=== PATIENT | male | born 1945 | race Caucasian/White ===

== ENCOUNTER 2018-02-16 04:00 | Inpatient (IN) ==
[2018-02-16] MEDS ORDERED: SODIUM CHLORIDE 0.9% 1,000 ML IV STA (04:06)
[2018-02-16] MEDS ORDERED: SODIUM CHLORIDE 0.9% 1,000 ML IV PRN (04:07)
[2018-02-16 05:15] LABS: Albumin 3.2 G/DL (3.4-5.0); Bilirubin,Total 0.7 MG/DL (0.2-1.0); Calcium 8.1 MG/DL (8.5-10.1); Osmolality,Calculated 282.5 MOS/KG (273-304); Potassium 4.1 MMOL/L (3.5-5.1); Total Protein 6.1 G/DL (6.4-8.3)
[2018-02-16] MEDS ORDERED: CEFEPIME 2,000 MG in SODIUM CHLORIDE 0.9% 100 ML IV STA (05:15)
[2018-02-16] MEDS ORDERED: metroNIDAZOLE INJ 500 MG in PREMIX 1 EACH IV STA (05:15)
[2018-02-16 05:33] LABS: Basophils % 0.2 % (0.0-0.8); Eosinophils # 0.2 10*3/uL (0.0-0.87); Eosinophils % 1.4 % (0.00-10.9); Hematocrit 32.2 VOL% (42.0-52.0); Hemoglobin 10.8 GM/DL (14.0-18.0); Immature Granulocytes % 0.8 %; Immature Granulocytes Absolute 0.13 #; Lymphocytes % 6.4 % (21.2-54.2); Mean Corpuscular HGB Conc 33.5 GM/DL (32-36); Mean Corpuscular Hemoglobin 31 PG (27-34); Mean Corpuscular Volume 93.1 FL (87-102); Mean Platelet Volume 10.5 FL (9.6-12.0); Monocytes # 0.9 10*3/uL (0.11-0.8); Monocytes % 5.6 % (1.7-12.7); Neutrophils # 13.3 10*3/uL (1.4-7.4); Neutrophils % 85.6 % (38.7-73.9); Platelet Count 207 T/CUMM (130-400); Red Blood Count 3.46 MC/CUMM (3.8-5.5); White Blood Count 15.6 T/CUMM (4-12)
[2018-02-16 05:55] LABS: PT Patient Result 10.7 SECS; Partial Thromboplastin Time 25.4 SECS (0-40)
[2018-02-16] MEDS ORDERED: ONDANSETRON 4 MG/2 ML VIAL IV PRN (07:30)
[2018-02-16] MEDS ORDERED: SODIUM CHLORIDE 0.9% 1,000 ML IV SCH (07:30)
[2018-02-16] MEDS ORDERED: ACETAMINOPHEN 325 MG TABLET PO PRN (07:30)
[2018-02-16] MEDS ORDERED: MAGNESIUM HYDROXIDE SUSP 30 ML UDCUP PO PRN (07:33)
[2018-02-16] MEDS ORDERED: ALUMINUM/MAGNES/SIMETH MAX STR 30 ML UDCUP PO PRN (07:33)
[2018-02-16 08:46] LABS: Hematocrit 33.5 VOL% (42.0-52.0); Hemoglobin 11.3 GM/DL (14.0-18.0)
[2018-02-16] MEDS: metroNIDAZOLE INJ 500 MG in PREMIX 1 EACH IV SCH ×2 (10:53→17:20)
[2018-02-16] MEDS: LEVOFLOXACIN INJ 750 MG in PREMIX 1 EACH IV SCH (10:59)
[2018-02-16] MEDS: PANTOPRAZOLE 40 MG TABLET PO SCH (11:00)
[2018-02-16] MEDS ORDERED: DEXTROSE 50% 25 GM/50 ML VIAL IV PRN (12:48)
[2018-02-16] MEDS ORDERED: GLUCAGON 1 MG VIAL IM PRN (12:48)
[2018-02-16 17:30] LABS: Hematocrit 33.6 VOL% (42.0-52.0); Hemoglobin 11.2 GM/DL (14.0-18.0)
[2018-02-16] MEDS: INSULIN LISPRO 100 UNIT/ML SUBCUT SCH ×2 (17:45→21:00)
[2018-02-16] MEDS ORDERED: GABAPENTIN 300 MG CAPSULE PO SCH (21:00)
[2018-02-16] MEDS ORDERED: FLUTICASONE/SALMETEROL 250-50 DISKUS 14 DOSE INH SCH (21:00)
[2018-02-16] MEDS ORDERED: traZODone 50 MG TABLET PO SCH (21:00)
[2018-02-17 00:46] LABS: Hematocrit 29.7 VOL% (42.0-52.0); Hemoglobin 10.1 GM/DL (14.0-18.0)
[2018-02-17] MEDS: metroNIDAZOLE INJ 500 MG in PREMIX 1 EACH IV SCH ×2 (03:58→09:49)
[2018-02-17 04:29] LABS: Basophils % 0.2 % (0.0-0.8); Eosinophils # 0.1 10*3/uL (0.0-0.87); Eosinophils % 1.5 % (0.00-10.9); Hematocrit 30.5 VOL% (42.0-52.0); Hemoglobin 10.2 GM/DL (14.0-18.0); Immature Granulocytes % 0.4 %; Immature Granulocytes Absolute 0.04 #; Lymphocytes # 1.6 10*3/uL (1.4-4.0); Lymphocytes % 17.4 % (21.2-54.2); Mean Corpuscular HGB Conc 33.4 GM/DL (32-36); Mean Corpuscular Hemoglobin 31 PG (27-34); Mean Corpuscular Volume 93.3 FL (87-102); Mean Platelet Volume 10.9 FL (9.6-12.0); Monocytes # 0.7 10*3/uL (0.11-0.8); Monocytes % 7.6 % (1.7-12.7); Neutrophils # 6.7 10*3/uL (1.4-7.4); Neutrophils % 72.9 % (38.7-73.9); Platelet Count 204 T/CUMM (130-400); Red Blood Count 3.27 MC/CUMM (3.8-5.5); White Blood Count 9.2 T/CUMM (4-12)
[2018-02-17 04:37] LABS: Calcium 8.1 MG/DL (8.5-10.1); Osmolality,Calculated 284.8 MOS/KG (273-304); Potassium 3.8 MMOL/L (3.5-5.1)
[2018-02-17] MEDS: INSULIN LISPRO 100 UNIT/ML SUBCUT SCH (09:48)
[2018-02-17] MEDS: PANTOPRAZOLE 40 MG TABLET PO SCH (09:49)
[2018-02-17] MEDS: LEVOFLOXACIN INJ 750 MG in PREMIX 1 EACH IV SCH (09:50)
[2018-02-17 12:15] VITALS: BP 129/73
== END 2018-02-17 13:00 | disposition home or self-care (01) | DRG 379 ==
LOC: N.ED 04:00 → SUATTDRO 07:30 → N.EDINP 07:30 → N.5E 10:20
PROVIDERS: ADMIT Internal Medicine; ATTEND Internal Medicine

== ENCOUNTER 2019-10-23 06:22 | Observation (INO) ==
[2019-10-23] MEDS ORDERED: ASPIRIN 325 MG TABLET PO STA (07:03)
[2019-10-23] MEDS ORDERED: SODIUM CHLORIDE 0.9% 500 ML IV STA (07:03)
[2019-10-23] MEDS ORDERED: ENOXAPARIN 100 MG/ML SYRINGE SUBCUT STA (07:03)
[2019-10-23] MEDS ORDERED: ONDANSETRON 4 MG/2 ML VIAL IV STA (07:03)
[2019-10-23] MEDS ORDERED: NITROGLYCERIN 2% OINT 1 INCH/GM PACK TOP STA (07:03)
[2019-10-23] MEDS ORDERED: ALUM/MAG/SIMETH/LIDO VISC 1:1 30 ML BOTTLE PO STA (07:03)
[2019-10-23 07:15] LABS: Basophils # 0.1 10*3/uL (0.0-0.2); Basophils % 0.7 % (0.0-0.8); Eosinophils # 0.3 10*3/uL (0.0-0.87); Eosinophils % 3.9 % (0.00-10.9); Hematocrit 40.5 VOL% (42.0-52.0); Hemoglobin 13.7 GM/DL (14.0-18.0); Immature Granulocytes % 0.5 %; Immature Granulocytes Absolute 0.04 #; Lymphocytes # 2.2 10*3/uL (1.4-4.0); Lymphocytes % 30.4 % (21.2-54.2); Mean Corpuscular HGB Conc 33.8 GM/DL (32-36); Mean Corpuscular Volume 92.9 FL (87-102); Mean Platelet Volume 10.5 FL (9.6-12.0); Monocytes % 6.5 % (1.7-12.7); Platelet Count 228 T/CUMM (130-400); Red Blood Count 4.36 MC/CUMM (3.8-5.5); Red Cell Distribution Width 12.5 % (9.3-17.3); White Blood Count 7.4 T/CUMM (4-12)
[2019-10-23] MEDS ORDERED: ENOXAPARIN 80 MG/0.8 ML SYRINGE SUBCUT ONE (07:19)
[2019-10-23 07:27] LABS: Albumin 3.6 G/DL (3.4-5.0); Bilirubin,Total 0.4 MG/DL (0.2-1.0); Calcium 9.2 MG/DL (8.5-10.1); Osmolality,Calculated 282.4 MOS/KG (273-304); Total Protein 6.3 G/DL (6.4-8.3)
[2019-10-23] MEDS ORDERED: MORPHINE 4 MG/1 ML VIAL IV STA (07:33)
[2019-10-23] MEDS ORDERED: MORPHINE 4 MG/1 ML VIAL ONE (07:35)
[2019-10-23 08:01] LABS: PT Patient Result 10.4 SECS (9.8-11.9); Partial Thromboplastin Time 24.3 SECS (23.9-33.8)
[2019-10-23] MEDS ORDERED: ACETAMINOPHEN 325 MG TABLET PO PRN (10:08)
[2019-10-23] MEDS ORDERED: ONDANSETRON 4 MG/2 ML VIAL IV PRN (10:08)
[2019-10-23] MEDS ORDERED: DEXTROSE 50% 25 GM/50 ML VIAL IV PRN (10:08)
[2019-10-23] MEDS ORDERED: guaiFENesin/DM ER 600-30 MG TABLET PO PRN (10:08)
[2019-10-23] MEDS ORDERED: GLUCAGON 1 MG VIAL IM PRN (10:08)
[2019-10-23 10:49] LABS: Risk Ratio 3.53; Thyroid Stimulating Hormone 1.83 uIU/ml (0.358-3.74); VLDL CHOLESTEROL 16.8 MG/DL
[2019-10-23] MEDS: ENOXAPARIN 40 MG/0.4 ML SYRINGE SUBCUT SCH (11:49)
[2019-10-23] MEDS: INSULIN REGULAR 100 UNIT/ML SUBCUT SCH ×3 (12:16→20:20)
[2019-10-23 13:14] LABS: Bilirubin,Urine Negative (Negative); Blood, Urine Negative (Negative); Glucose,Urine (UA) Negative (Negative); Ketones,Urine Negative (Negative); Mucus,Urine Occasional /LPF (Occasional); Nitrite,Urine Negative (Negative); Protein,Urine Negative; RBC,Urine 1 /HPF (0-4); Urine Appearance CLEAR (Clear); Urine Color Yellow (Yellow); Urine Specific Gravity 1.008 (1.001-1.035); Urine Urobilinogen < 2.0 EU/DL (0.2-1.0); WBC,Urine <1 /HPF (0-6)
[2019-10-23 15:30] LABS: Troponin I < 0.015 NG/ML (0.00-0.045)
[2019-10-23] MEDS ORDERED: SIMVASTATIN 20 MG TABLET PO SCH (21:00)
[2019-10-23] MEDS ORDERED: ASPIRIN EC 81 MG TABLET PO SCH ×2 (21:00)
[2019-10-23] MEDS ORDERED: LOSARTAN 25 MG TABLET PO SCH (21:00)
[2019-10-23] MEDS ORDERED: rOPINIRole 1 MG TABLET PO SCH (21:30)
[2019-10-24 05:57] LABS: Basophils % 0.3 % (0.0-0.8); Eosinophils # 0.3 10*3/uL (0.0-0.87); Eosinophils % 3.3 % (0.00-10.9); Hematocrit 40.8 VOL% (42.0-52.0); Hemoglobin 13.9 GM/DL (14.0-18.0); Immature Granulocytes % 0.4 %; Immature Granulocytes Absolute 0.03 #; Lymphocytes # 1.7 10*3/uL (1.4-4.0); Lymphocytes % 22.3 % (21.2-54.2); Mean Corpuscular HGB Conc 34.1 GM/DL (32-36); Mean Corpuscular Volume 92.5 FL (87-102); Mean Platelet Volume 10.7 FL (9.6-12.0); Monocytes % 7.2 % (1.7-12.7); Neutrophils % 66.5 % (38.7-73.9); Platelet Count 208 T/CUMM (130-400); Red Blood Count 4.41 MC/CUMM (3.8-5.5); Red Cell Distribution Width 12.6 % (9.3-17.3); White Blood Count 7.5 T/CUMM (4-12)
[2019-10-24 06:29] LABS: Osmolality,Calculated 279.4 MOS/KG (273-304)
[2019-10-24] MEDS: INSULIN REGULAR 100 UNIT/ML SUBCUT SCH (07:45)
[2019-10-24 07:57] VITALS: BP 150/70
[2019-10-24] MEDS ORDERED: PANTOPRAZOLE 40 MG TABLET PO SCH (09:00)
[2019-10-24] MEDS: ENOXAPARIN 40 MG/0.4 ML SYRINGE SUBCUT SCH (09:55)
== END 2019-10-24 11:51 | disposition home or self-care (01) ==
LOC: N.ED 06:22 → INTOOBSV 09:52 → N.EDINP 09:52 → N.TELEN 14:15
PROVIDERS: ADMIT Internal Medicine; ATTEND Internal Medicine